=== PATIENT | female | born 1965 | race American Indian/Alaskan Native ===

== ENCOUNTER 2017-07-02 20:12 | Emergency (ER) | payer MEDICARE, OTHER ==
[~2017-07-02] VITALS: Ht 591.1 cm; Wt 59.0 kg
[~2017-07-02 20:12] MED LIST: ALBU18HF2 IH; CETI-1 PO; CLIN150C2 PO; CLON-527 PO; COL100C PO; CYCL-394 PO; DESV100T; HYDR1TAB69 PO; LANS30CA37 PO; MELO15TA13 PO; MOME17SP NS; TRAZ-91 PO; ZOLP10TA5 PO
[2017-07-02 21:19] LABS: BASOPHILS % (AUTO) 0.6 % (0-1); EOSINOPHILS % (AUTO) 0.5 % (0-6); HEMATOCRIT 39.4 % (35.0-45.0); HEMOGLOBIN 13.5 g/dl (12.0-16.0); MEAN CORPUSCULAR HEMOGLOBIN 33.3 PG (27.0-31.0); MEAN CORPUSCULAR HGB CONC 34.3 % (33.0-36.5); MEAN CORPUSCULAR VOLUME 97.1 FL (78-98); MEAN PLATELET VOLUME 9.9 FL (7.4-10.4); MONOCYTES # (AUTO) 0.3 X10'3 (0-0.9); MONOCYTES % (AUTO) 8.6 % (2-12); NEUTROPHILS % (AUTO) 59.3 % (42-75); PLATELET COUNT 193 X10'3 (140-440); RED BLOOD COUNT 4.06 X10'6 (4.20-5.60); RED CELL DISTRIBUTION WIDTH 14.1 % (11.5-14.5); WHITE BLOOD COUNT 3.4 X10'3 (4.5-11.0)
[2017-07-02 21:28] LABS: URINE HCG NEGATIVE (NEG)
[2017-07-02 21:33] LABS: ALANINE AMINOTRANSFERASE 68 U/L (12-78); ALBUMIN 4.2 G/DL (3.4-5.0); ALBUMIN/GLOBULIN RATIO 1.1 (1.1-1.5); ALKALINE PHOSPHATASE 75 IU/L (46-116); ANION GAP 10 (8-16); ASPARTATE AMINO TRANSFERASE 47 U/L (10-37); BILIRUBIN,TOTAL 0.8 MG/DL (0.1-1.0); BLOOD UREA NITROGEN 16 MG/DL (7-18); BUN/CREATININE RATIO 15.1 (6.6-38.0); CALCIUM 9.3 MG/DL (8.5-10.1); CHLORIDE 101 MMOL/L (99-107); CREATININE 1.06 MG/DL (0.40-0.90); GLUCOSE 92 MG/DL (70-104); POTASSIUM 3.6 MMOL/L (3.5-5.1); SODIUM 138 MMOL/L (135-145); TOTAL CARBON DIOXIDE 27.3 MMOL/L (24-32); TOTAL PROTEIN 7.9 G/DL (6.4-8.2); eGFR 54 ML/MIN
[2017-07-02 21:38] LABS: URINE AMPHETAMINE SCREEN NEGATIVE (Neg); URINE BARBITUATE SCREEN NEGATIVE (Neg); URINE BENZODIAZEPINES SCREEN NEGATIVE (Neg); URINE CANNABINOID SCREEN NEGATIVE (Neg); URINE COCAINE SCREEN NEGATIVE (Neg); URINE METHADONE SCREEN NEGATIVE (Neg); URINE OPIATE SCREEN NEGATIVE (Neg); URINE PHENCYCLIDINE SCREEN NEGATIVE (Neg)
[2017-07-02 21:42] LABS: ETHANOL < 0.010 GM/DL (0.0-0.010)
[2017-07-02] MEDS ORDERED: FAMO20TA8 PO (21:58)
[2017-07-02] MEDS ORDERED: HYDR-3686 PO (21:58)
[2017-07-02] MEDS ORDERED: VALA100027 PO (21:58)
[2017-07-02] MEDS ORDERED: PER5325T PO (21:58)
[2017-07-02] MEDS ORDERED: RISP0.5T3 PO (21:58)
[2017-07-02] MEDS ORDERED: RISP1TAB3 PO (21:58)
[2017-07-02] MEDS ORDERED: PRAZ1CAP5 PO (21:58)
[2017-07-02] MEDS ORDERED: LAMO200T31 PO (21:58)
[2017-07-02] MEDS ORDERED: hydrOXYzine 25 MG tablet PO PRN (22:35)
[2017-07-02] MEDS ORDERED: prazosin 1mg capsule PO PRN (22:35)
[2017-07-02] MEDS ORDERED: traZODone 50mg tablet PO SCH (22:56)
[2017-07-02] MEDS ORDERED: risperiDONE 0.5mg tablet PO SCH (22:57)
[2017-07-02] MEDS: famotidine 20mg tablet PO SCH (23:35)
[2017-07-03 05:27] VITALS: BP 139/76
[2017-07-03] MEDS ORDERED: cyclobenzaprine 10mg tablet PO SCH (08:00)
[2017-07-03] MEDS ORDERED: non-formulary drug (Mometasone Furoate* (Nasonex*) 2 SPRAYS) NS SCH (08:00)
[2017-07-03] MEDS ORDERED: valacyclovir 500mg tablet PO SCH (08:00)
[2017-07-03] MEDS ORDERED: docusate sod 100mg capsule PO SCH (08:00)
[2017-07-03] MEDS ORDERED: fluticasone nasal spray 16GM bottle NS SCH (08:00)
[2017-07-03] MEDS ORDERED: LAMOTRIGINE 200 MG PO SCH (08:00)
[2017-07-03] MEDS ORDERED: risperiDONE 0.5mg tablet PO SCH (08:00)
[2017-07-03] MEDS: famotidine 20mg tablet PO SCH (08:31)
== END 2017-07-03 11:52 | disposition home or self-care (01) ==
LOC: ER 20:12
DX: F31.9 Bipolar disorder, unspecified (principal); F22 Delusional disorders; F41.9 Anxiety disorder, unspecified; R45.851 Suicidal ideations; Z98.890 Other specified postprocedural states; Z88.2 Allergy status to sulfonamides; Z88.5 Allergy status to narcotic agent; Z79.899 Other long term (current) drug therapy
CPT/HCPCS: 36415; 80053; 80305; 80320; 81025; 84443; 85025; 99284; Q0177